=== PATIENT | male | born 1990 | race Caucasian/White ===

== ENCOUNTER 2023-12-12 12:54 | Emergency (ER) | payer SELFPAY ==
--- NOTE | ~2023-12-12 | XR_ITS ---
EXAMINATION: XR RIBS, RIGHT CLINICAL INFORMATION: Pain. History of rib fracture. COMPARISON: None available. TECHNIQUE: 3 views of the right ribs were obtained. FINDINGS: Lungs are clear. No pneumothorax. Bony structures intact. Ribs intact. XR/XR ribs RT min 3V w CXR1V IMPRESSION: Unremarkable exam. Lungs are clear. No consolidation, pneumothorax, or pleural effusion. The cardiomediastinal silhouette and pulmonary vasculature are normal. Osseous structures are unremarkable. Ribs are intact. No fractures are identified. IMPRESSION: Unremarkable examination.
[2023-12-12 12:57] VITALS: BP 98/75; PULSE 96; RESP 19; TEMP 36.8; O2SAT 98; BMI 19.5
--- NOTE | 2023-12-12 13:00 | ED.GENADULT ---
HPI - General Adult General Chief complaint: General Medical Stated complaint: r sided back and rib area pain Time Seen by Provider: 12/12/23 14:06 Source: patient and family Mode of arrival: ambulatory Limitations: no limitations History of Present Illness ED Provider: Marylu BONILLA narrative: Patient is a 33-year-old male presenting to the emergency department with complaint of right lower posterior rib pain as well as cough and shortness of breath. Reports history of rib fracture in similar area in 2019. Pain is worse with movement and palpation. States son recently tested positive for COVID. He denies fevers, body aches, chills. Denies any abdominal pain, nausea, vomiting, diarrhea. Denies any chest pain or palpitations. Has been using Tylenol and ibuprofen at home with little relief. MD complaint: Cough, rib pain Onset (ago): day(s) Quality: aching Pain Consistency: colicky Relieving factors: rest Exacerbating factors: movement Associated symptoms: cough and shortness of breath Treatments prior to arrival: NSAID and other (Tylenol) Related Data Previous Rx's ?Medication ?Instructions ?Recorded benzonatate 100 mg capsule 100 mg PO TID PRN cough #14 caps 12/12/23 lidocaine 5 % topical patch 1 patch topical DAILY #15 ea 12/12/23 Allergies Allergy/AdvReac Type Severity Reaction Status Date / Time No Known Allergies Allergy Verified 12/12/23 13:02 Review of Systems Review of Systems: As per HPI. Yes all other systems are reviewed and are negative Constitutional: Constitutional: Reports as per HPI [facility] Social History Social History Advance Directives: No Do you have a plan to hurt others: No Plan Physical Exam ED Vital Signs: Vital Signs - 24 hr 12/12/23 12:57 12/12/23 13:52 Temperature 98.3 F 98.2 F Pulse Rate 96 68 Respiratory Rate 19 Blood Pressure 98/75 95/66 Pulse Oximetry 98 98 Oxygen Delivery Method Room Air Room Air BMI result Body Mass Index 19.5 Vital signs have been reviewed and appear to be correct. Blood pressure normal. Heart rate normal. Respiratory rate normal. Temperature normal. Oxygen saturation normal. Const General: cooperative, healthy appearing and no acute distress Orientation/consciousness: oriented to person, oriented to place, oriented to time and patient oriented x3 Limitations: no limitations HENMT Head: Yes normocephalic and Yes atraumatic Ears: external ears normal General nose exam: Normal external nose present Face and sinus: Yes face symmetric Mouth: oropharynx normal and moist mucous membranes Throat: Yes uvula midline Eyes Pupils: Equal, round and reactive pupils present Neck Neck: Yes normal visual inspection and Yes supple Chest Chest palpation & inspection: normal inspection of the chest, no crepitus and tenderness rib right posterior-axillary line involving the 9th rib, involving the 10th rib, involving the 11th rib and involving the 12th rib Resp Effort & Inspection: normal respiratory effort, able to speak in complete sentences, no retractions, not tachypneic and no use of accessory muscles Auscultation: clear to auscultation bilaterally, no crackles, no rhonchi and no wheezes Cardio Rate: regular rate Rhythm: regular rhythm Heart sounds: S1 normal heart sound present and S2 normal heart sound present GI Palpation (GI): Soft to palpation and nontender Auscultation: normoactive bowel sounds General: Yes no CVA tenderness Back/Spine/Pelvis Back: no CVA tenderness Skin General skin exam: elasticity normal and turgor normal Neuro General: oriented to person, oriented to place, oriented to time, patient oriented x3, moves all extremities, no focal motor deficits and CN's II-XI intact bilaterally Cranial nerves: Yes Equal, round and reactive pupils present Cognition (Neuro): normal cognition Extrem General: Yes full ROM, Yes no pedal edema and Yes no calf tenderness Psych Mental Status: mental status grossly normal Affect: normal affect Thought process: Normal thought process present Course Course Course Narrative: This is an RME: Additional HPI, ROS, PE not included below will be deferred to primary provider. RME assessment and note performed by: Alesha Singer PA-C This is a [id number], withno known medical problems, presenting to the ER with complaints of right sided rib pain x 1 week. Hx of right rib fx in the past. No injury or trauma. Son was sick with COVID. No fevers. Endorsing slight cough and SOB. Plan: CXR, Viral swabs Medical Decision Making Medical Decision Making MDM Narrative: Patient is a 33-year-old male presenting to the emergency department with complaint of right lower posterior rib pain as well as cough and shortness of breath. On exam patient is awake, A+Ox3, VS WNL, afebrile, normal neurological exam without focal deficits, physical exam findings as above. Given reported symptoms and physical exam findings, initial differential includes costochondritis, rib contusion, rib fracture, viral illness, COVID, flu, RSV. Viral serology positive for COVID-19. Patient is outside treatment window for Paxlovid. X-ray notable for no evidence of rib fracture or pneumonia. My interpretation is in agreement with the radiologist's interpretation. Physical exam findings consistent with costochondritis. Advised patient to begin alternating Tylenol and ibuprofen every 3 hours. Will send prescription for lidocaine patches and benzonatate for cough. Instructed patient follow-up with primary care provider. Return precautions discussed at bedside. Patient verbalized understanding of and agreement with plan. Differential Diagnosis Differential Diagnoses: The differential diagnosis associated with the presentation includes As per [facility]. Admission/Observation Consideration of admission/observation: Escalation of care including admission/observation considered Patient would have been admitted to the hospital had their work up had any findings where hospital admission was appropriate and their clinical presentation warranted hospital admission. Lab Data [facility] Lab Attestation statement: I reviewed the patient's lab results. As per MDM. Labs: Lab Results 12/12/23 Range/Units 13:24 Influenza Type A (PCR) NEGATIVE (Negative) Influenza Type B (PCR) NEGATIVE (Negative) RSV RNA Qual (PCR) NEGATIVE (Negative) SARS-CoV-2 RNA (RT-PCR) POSITIVE A (Negative) Independent Interpretation I performed an independent interpretation of an: Plain X-Ray Interpretation: No evidence of rib fracture or pneumonia on chest x-ray Radiology Impression Discussion of test interpretation with radiology: I have reviewed the radiologist's reading. Radiologist Impression: XR/XR ribs RT min 3V w CXR1V IMPRESSION: Unremarkable exam. Lungs are clear. No consolidation, pneumothorax, or pleural effusion. The cardiomediastinal silhouette and pulmonary vasculature are normal. Osseous structures are unremarkable. Ribs are intact. No fractures are identified. IMPRESSION: Unremarkable examination. External Record Review External record reviewed: Inpatient record, Office record and Outpatient record Prescription Management I considered prescription management with: Pain Medication Discharge Plan Discharge Clinical Impression: COVID-19, Costochondritis Patient Disposition: Home, Self-Care Instructions: Costochondritis (ED), COVID-19 (Coronavirus Disease 2019) (ED) Additional Instructions: You were evaluated in the emergency department today for rib pain, cough and shortness of breath. Your viral testing was positive for COVID-19. Your x-ray did not show evidence of any new rib fractures or pneumonia. We recommend that you use 650 mg of Tylenol or 600 mg of ibuprofen every 6 hours as needed for pain. If necessary, you can alternate these medications every 3 hours. For example, at 9:00 a.m. take Tylenol, then at noon take ibuprofen then at 3:00 p.m. take Tylenol, etc.. You are being prescribed topical lidocaine patches which you can wear for up to 12 hours in a 24 hour period. Do not apply heat directly over the patches. You are being prescribed benzonatate for cough which you can use as needed every 8 hours. It is important that you keep this medication out of the reach of children. Please follow-up with your primary care provider. Return to the emergency department if you develop worsening pain, fever not controlled with Tylenol or ibuprofen, chest pain, difficulty breathing, dizziness or lightheadedness or any other concerning symptoms. Prescriptions: New lidocaine 5 % adhesive patch,medicated 1 patch topical DAILY Qty: 15 0RF Rx Instructions: leave on most painful area for up to 12 hrs benzonatate 100 mg capsule 100 mg PO TID PRN (Reason: cough) Qty: 14 0RF Stand Alone Forms: Work/School Release Print Language: Portuguese
[2023-12-12 13:52] VITALS: BP 95/66; PULSE 68; TEMP 36.8; O2SAT 98
[2023-12-12 14:16] LABS: Influenza A PCR NEGATIVE (Negative); Influenza B PCR NEGATIVE (Negative); Resp Syncy Virus RNA Qual PCR NEGATIVE (Negative); SARS COV2 PCR INHOUSE POSITIVE (Negative)
[2023-12-12 15:58] VITALS: BP 95/66; PULSE 68; RESP 16; TEMP 36.8; O2SAT 98
== END 2023-12-12 15:59 | disposition home or self-care (01) ==
PROVIDERS: Physician Assistant Medical; Emergency Provider Emergency Medicine; PCP Internal Medicine
DX: U07.1 COVID-19 (principal); M94.0 Chondrocostal junction syndrome [Tietze]
CPT/HCPCS: 0241U; 71101; 99283

== ENCOUNTER 2024-04-19 04:29 | Emergency (ER) | payer SELFPAY ==
--- NOTE | ~2024-04-19 | XR_ITS ---
EXAMINATION: XR CHEST CLINICAL INFORMATION: Chest pain shortness of breath COMPARISON: Right rib radiograph from 12/12/2023 TECHNIQUE: Frontal view of the chest was obtained. FINDINGS: No focal consolidation. No pneumothorax. Trachea is midline. Cardiac mediastinal silhouette is not enlarged. No large pleural effusion. Osseous structures are intact. Soft tissues are unremarkable. XR/XR chest 1V IMPRESSION: No acute cardiopulmonary process. Electronically signed by: Tom Javier MD 04/19/2024 08:33 AM EDT
[2024-04-19 04:39] VITALS: BP 101/54; BP 104/79; PULSE 72; RESP 15; TEMP 36.8; O2SAT 100; O2SAT 96; BMI 20.6
--- NOTE | 2024-04-19 04:53 | MHC.EDTECH ---
Patient BIBA,changed into hospital attire,vitals taken,placed pt on the night monitor,call pugh in reach
--- NOTE | 2024-04-19 04:57 | PC.NURSE ---
Assumed care of pt, BIB EMS after drinking alcohol pt reports he was feeling SOB and overall awful. Pt reports this has never happened before. Pt reports SOB has resolved and that he is feeling a little nauseous and drunk but no longer feeling sob. Reports he only drinks occasionally on the weekends and just recently started drinking again after not drinking in about 2 years. Pt reports no history of alcohol withdrawal, current every day tobacco and marijuana smoker. Pt denies SI/HI, Pt on tele monitor, spo2 100% on room air, plan of care ongoing.
[2024-04-19 06:52] LABS: Hematocrit 43.2 % (42.0-52.0); Hemoglobin 14.5 g/dl (14.0-18.0); Mean Corpuscular HGB Conc 33.6 g/dl (31.0-36.0); Mean Corpuscular Volume 83.6 fL (80.0-98.0); Mean Platelet Volume 9.5 fL (9.4-12.4); Platelet Count 242 X10*3/uL (160-400); Red Blood Count 5.17 X10*6/uL (4.60-5.80); Red Cell Distribution Width 13.1 % (11.0-16.0); White Blood Count 7.5 X10*3/uL (4.8-10.8)
[2024-04-19 07:00] LABS: Anion Gap 15 (12-20); Blood Urea Nitrogen 14 mg/dL (9-16); Calcium 9.1 mg/dL (8.4-10.2); Carbon Dioxide 22 mmol/L (22-29); Chloride 110 mmol/L (96-108); Creatinine Clr Calc Pharmacy 108.3; Estimated Glomerular Filt Rate > 60; Ethanol 98 mg/dL; Glucose Random 93 mg/dL (60-115); Potassium 3.7 mmol/L (3.3-5.1); Sodium 143 mmol/L (135-145)
--- NOTE | 2024-04-19 07:48 | ED_ITS ---
HPI - General Adult General Chief complaint: Dyspnea Stated complaint: dif breathing after ETOH, currently 100% on rm.air Time Seen by Provider: 04/19/24 06:49 Source: patient and RN notes reviewed Mode of arrival: EMS Limitations: no limitations History of Present Illness ED Provider: Alesha Singer PA-C HPI narrative: This is a 33-year-old male who presents emergency department with complaints of alcohol use. Patient reports that he ?drank too much?, states that he drank Danae, a couple of beers in a blue drank which has girlfriend had given him. He states that he feels as though he was intoxicated and drank too much alcohol. No other substance use. He states that he has some chest discomfort and per EMS report, he could not breathe. He states that he does not have the symptoms. He denies any chest pain or shortness for breath. No headache, dizziness, blurred vision, abdominal pain, nausea, vomiting or diarrhea. He denies any other complaints or concerns at this time. MD complaint: Alcohol use Relieving factors: none Exacerbating factors: none Associated symptoms: denies other symptoms Treatments prior to arrival: none Related Data Previous Rx's ?Medication ?Instructions ?Recorded benzonatate 100 mg capsule 100 mg PO TID PRN cough #14 caps 12/12/23 lidocaine 5 % topical patch 1 patch topical DAILY #15 ea 12/12/23 Allergies Allergy/AdvReac Type Severity Reaction Status Date / Time No Known Allergies Allergy Verified 04/19/24 04:43 Review of Systems 2 Review of Systems: Yes all other systems are reviewed and are negative Constitutional: Constitutional: Reports as per [facility] Past Medical History Attestation statement: The following information was validated with the patient. Social History Social History Alcohol intake: current Alcohol intake frequency: a few times a month Alcohol type: beer and hard liquor Smoked in Last 30 Days: Yes Use of substances other than those prescribed or required for medical reasons: Yes Substance Use Type: Marijuana Substance Use Frequency: Chronic Longstanding Advance Directives: No Do you have a plan to hurt others: No Plan Physical Exam ED Vital Signs: Vital Signs - 24 hr 04/19/24 04:39 04/19/24 08:43 04/19/24 12:12 Temperature 98.2 F Pulse Rate 72 66 68 Respiratory Rate 15 16 17 Blood Pressure 104/79 90/56 L 101/61 Pulse Oximetry 96 97 96 Oxygen Delivery Method Room Air Room Air Room Air BMI result Body Mass Index 20.6 Const General: cooperative, comfortable and no acute distress Orientation/consciousness: patient oriented x3 Limitations: no limitations [facility] Head: Yes normal to inspection, Yes normocephalic, Yes atraumatic, No Garza's sign, No contusion, No occipital foramen tenderness, No palpable skull fracture, No raccoon eyes and No scalp tenderness Ears: hearing grossly normal bilaterally General nose exam: Normal external nose present Face and sinus: Yes normal facial exam Mouth: Normal oral and palatal mucosa present, oropharynx normal and moist mucous membranes Throat: Yes posterior oropharynx normal Eyes General: appearance normal, both eyes and all related structures Eyelids: Yes eyelids normal Conjunctivae: conjunctivae normal Sclerae: sclerae normal Pupils: Equal, round and reactive pupils present EOM: EOMs intact bilaterally Neck Neck: Yes normal visual inspection, Yes full ROM and Yes no lymphadenopathy Lymphatic: no lymphadenopathy noted Chest Chest palpation & inspection: normal inspection of the chest Resp Effort & Inspection: normal respiratory effort and able to speak in complete sentences Auscultation: clear to auscultation bilaterally, no crackles, no rales, no rhonchi and no wheezes Cardio Rate: regular rate Rhythm: regular rhythm Heart sounds: S1 normal heart sound present and S2 normal heart sound present GI Other: Abdomen is soft, nontender, nondistended Inspection: Yes normal to inspection Skin General skin exam: no rashes or lesions noted Trauma: no lacerations or abrasions Wounds: no wounds Neuro General: patient oriented x3 and moves all extremities Cranial nerves: Yes CN's II-XII intact bilaterally and Yes Equal, round and reactive pupils present Cognition (Neuro): normal cognition Gait exam (Neuro): Normal gait present Motor exam (neuro): 5/5 motor strength present throughout and Pronator motor function not present Extrem General: Yes normal to inspection Right upper extremity: normal to inspection Left upper extremity: normal to inspection Right lower extremity: normal to inspection Left lower extremity: normal to inspection Course Reevaluation(s) Reevaluation #1: Chest x-ray unremarkable. Chemistry with no electrolyte derangement. Viral swabs negative. Time: 09:55 Reevaluation #2: Patient re-evaluated, feeling much better after receiving Zofran. Will p.o. trial Time: 10:00 Reevaluation #3: Attempted to give fluids and crackers, however patient reports that he is feeling nauseous again. Advised that we can medicate him with something else however patient would like to wait. We will continue to closely monitor. Time: 10:35 Additional Reevaluation(s): Patient feeling much better, he is drinking fluids at bedside. Strict return precautions. He understands and agrees with plan. Patient stable for discharge. Medications Administered Discontinued Medications Generic Name Dose Route Start Last Admin Trade Name Shawn PRN Reason Stop Dose Admin Acetaminophen 650 mg 04/19/24 12:52 04/19/24 12:56 Acetaminophen 325 Mg Tablet PO 04/19/24 12:53 650 mg ONCE ONE Administration Ondansetron HCl 4 mg 04/19/24 08:08 04/19/24 08:20 Ondansetron Odt 4 Mg Tab.Rapdis TRANSLINGU 04/19/24 08:09 4 mg ONCE ONE Administration Medical Decision Making Medical Decision Making [facility] Narrative: This is a 33-year-old male who presents emergency department via EMS as he ?drank too much?. On arrival, vital signs within normal limits. He is speaking in full sentences under no acute distress. He does report some nausea. Abdomen is soft and nontender. He reports no chest pain or shortness of breath. Labs were ordered, no leukocytosis, stable H&H, chemistry within normal limits. He is neurologically intact. Head is normocephalic atraumatic. Chest x-ray unremarkable. EKG nonischemic. Continue to monitor pending re-evaluation with nausea, and possible p.o. challenge. Differential Diagnosis Differential Diagnoses: The differential diagnosis associated with the presentation includes Alcohol use disorder, acute nausea, vomiting, polysubstance abuse, gastroenteritis, gastritis Admission/Observation Consideration of admission/observation: Escalation of care including admission/observation considered Lab Data [facility] Lab Attestation statement: I reviewed the patient's lab results. No leukocytosis, stable H&H, chemistry within normal limits, viral swabs negative 04/19/24 06:44 04/19/24 06:44 Labs: Lab Results 04/19/24 04/19/24 Range/Units 06:44 08:34 WBC 7.5 (4.8-10.8) X10*3/uL RBC 5.17 (4.60-5.80) X10*6/uL Hgb 14.5 (14.0-18.0) g/dl Hct 43.2 (42.0-52.0) % MCV 83.6 (80.0-98.0) fL MCH 28.0 (27.0-33.0) pg MCHC 33.6 (31.0-36.0) g/dl RDW 13.1 (11.0-16.0) % Plt Count 242 (160-400) X10*3/uL MPV 9.5 (9.4-12.4) fL Absolute Nucleated RBC 0.000 (0.0-0.012) X10*3/uL Nucleated RBC % (auto) 0.0 (0.0-0.2) /100WBC Sodium 143 (135-145) mmol/L Potassium 3.7 (3.3-5.1) mmol/L Chloride 110 H (96-108) mmol/L Carbon Dioxide 22 (22-29) mmol/L Anion Gap 15 (12-20) BUN 14 (9-16) mg/dL Creatinine 0.81 (0.5-1.4) mg/dL Estim Creat Clear Calc 108.3 Estimated GFR > 60 Random Glucose 93 (60-115) mg/dL Calcium 9.1 (8.4-10.2) mg/dL Troponin I High Sens < 2.7 (<3.5-35.0) ng/L Ethyl Alcohol 98 mg/dL Influenza Type A (PCR) NEGATIVE (Negative) Influenza Type B (PCR) NEGATIVE (Negative) RSV RNA Qual (PCR) NEGATIVE (Negative) SARS-CoV-2 RNA (RT-PCR) NEGATIVE (Negative) Independent Interpretation I performed an independent interpretation of an: EKG Interpretation: EKG normal sinus rhythm at a ventricular rate of 70 beats per minute, no ST elevation or depression. Radiology Impression Discussion of test interpretation with radiology: I have reviewed the radiologist's reading. Radiologist Impression: XR/XR chest 1V IMPRESSION: No acute cardiopulmonary process. Electronically signed by: Tom Javier MD 04/19/2024 08:33 AM EDT Dictated By: Tom Javier MD Independent Historian Clinical information obtained from an independent historian. History obtained from or confirmed by: EMS Social Determinants Patient?s care significantly limited by Social Determinants of Health including: Alcoholism and drug addiction in family Discharge Plan Discharge Clinical Impression: Alcohol use Patient Disposition: Still a Patient Instructions: Abuse of Alcohol (ED), At-Risk Alcohol Use (ED) Additional Instructions: You were seen in the emergency department today. Your chest x-ray was normal, your blood work was reassuring. Please continue bland diet over the next several days. Advance diet as tolerated. If any new or worsening symptoms occur including but not limited to chest pain or shortness of breath please seek emergent care. Prescriptions: No Action lidocaine 5 % adhesive patch,medicated 1 patch topical DAILY Qty: 15 0RF Rx Instructions: leave on most painful area for up to 12 hrs benzonatate 100 mg capsule 100 mg PO TID PRN (Reason: cough) Qty: 14 0RF Print Language: Mongolian
--- NOTE | 2024-04-19 07:48 | ECG_ITS ---
Test Reason : CP Blood Pressure : / mmHG Vent. Rate : 070 BPM Atrial Rate : 070 BPM P-R Int : 150 ms QRS Dur : 082 ms QT Int : 394 ms P-R-T Axes : 054 068 059 degrees QTc Int : 425 ms Normal sinus rhythm Normal ECG No previous ECGs available Referred By: Alesha Singer Electronically Signed By:MARGARITA PRESTON
[2024-04-19 08:18] LABS: Troponin-I High Sensitivity < 2.7 ng/L (<3.5-35.0)
[2024-04-19] MEDS: Ondansetron ODT 4 MG TAB.RAPDIS TRANSLINGU (08:20)
[2024-04-19 08:43] VITALS: BP 90/56; PULSE 66; RESP 16; O2SAT 97
[2024-04-19 09:16] LABS: Influenza A PCR NEGATIVE (Negative); Influenza B PCR NEGATIVE (Negative); Resp Syncy Virus RNA Qual PCR NEGATIVE (Negative); SARS COV2 PCR INHOUSE NEGATIVE (Negative)
[2024-04-19 12:12] VITALS: BP 101/61; PULSE 68; RESP 17; O2SAT 96
[2024-04-19] MEDS: Acetaminophen 325 MG TABLET 650 MG PO (12:56)
[2024-04-19 13:35] VITALS: BP 101/61; PULSE 68; RESP 18; TEMP 36.7; O2SAT 96
== END 2024-04-19 13:35 | disposition still patient (30) ==
PROVIDERS: Physician Assistant Medical; Emergency Provider Emergency Medicine
DX: R06.00 Dyspnea, unspecified (principal); F10.10 Alcohol abuse, uncomplicated; Y90.4 Blood alcohol level of 80-99 mg/100 ml; R11.0 Nausea; R07.89 Other chest pain; Z03.818 Encounter for observation for suspected exposure to other biological agents ruled out; Z79.899 Other long term (current) drug therapy; Z51.81 Encounter for therapeutic drug level monitoring
CPT/HCPCS: 0241U; 36415; 71045; 80048; 80307; 84484; 85027; 93005; 99285

== ENCOUNTER → 2024-04-19 07:48 | Outpatient (BNV) | payer SELFPAY | PROVIDERS: Emergency Provider Emergency Medicine; Visit Provider Internal Medicine | DX: R07.9 Chest pain, unspecified (principal) | CPT/HCPCS: 93010 ==

== ENCOUNTER 2025-01-07 11:10 | Emergency (ER) | payer OTHER, SELFPAY ==
--- NOTE | ~2025-01-07 | XR_ITS ---
EXAMINATION: XR CERVICAL SPINE CLINICAL INFORMATION: pain COMPARISON: None available. TECHNIQUE: AP, lateral and atlantoodontoid views. FINDINGS: Craniocervical junction is intact. No acute cortical disruption or malalignment. No lytic or blastic lesions. Upper airway is patent. No metallic or radiopaque foreign body. XR/XR cervical spine 3V IMPRESSION: No acute fracture or listhesis. Electronically signed by: Mark Melton MD 01/07/2025 12:35 PM EDT
--- NOTE | ~2025-01-07 | XR_ITS ---
EXAMINATION: XR HAND, LEFT CLINICAL INFORMATION: pain COMPARISON: None available. TECHNIQUE: PA, lateral, and oblique views of the left hand. FINDINGS: Old traumatic deformity with volar angulation, distal diaphysis fifth metacarpal. No acute cortical disruption or malalignment in the phalanges of the digits. Carpal bones are intact. Metallic plate distal epiphysis metaphysis and diaphysis of the radius. XR/XR hand LT min 3V IMPRESSION: No acute fracture or dislocation. Old traumatic deformity, fifth metacarpal. Electronically signed by: Mark Melton MD 01/07/2025 12:37 PM EDT
--- NOTE | ~2025-01-07 | XR_ITS ---
EXAMINATION: XR WRIST, RIGHT CLINICAL INFORMATION: pain COMPARISON: None available. TECHNIQUE: PA, lateral, and oblique views of the right wrist. Scaphoid projection. FINDINGS: The carpal bones are intact. Normal alignment. No lytic or blastic lesions. Distal radius and ulna are intact. 2 mm calcific opacity in the soft tissues of the ulnar aspect of the right hand, nonspecific. XR/XR wrist RT min 3V IMPRESSION: No acute fracture or dislocation. Electronically signed by: Mark Melton MD 01/07/2025 12:40 PM EDT
--- NOTE | ~2025-01-07 | XR_ITS ---
EXAMINATION: XR WRIST, LEFT CLINICAL INFORMATION: pain COMPARISON: None available. TECHNIQUE: PA, lateral, and oblique views of the left wrist. Scaphoid projection. FINDINGS: The carpal bones are intact. There is normal alignment. There is a intact metallic plate in the volar aspect of the distal epiphysis metaphysis and diaphysis of the radius. No lytic or blastic lesions. No loosening. XR/XR wrist LT min 3V IMPRESSION: No acute fracture or dislocation. Electronically signed by: Mark Melton MD 01/07/2025 12:34 PM EDT
--- NOTE | ~2025-01-07 | XR_ITS ---
EXAMINATION: XR HAND, RIGHT CLINICAL INFORMATION: pain COMPARISON: None available. TECHNIQUE: PA, lateral, and oblique views of the right hand. FINDINGS: The metacarpal bones are intact. The phalanges are intact with normal alignment. 2 mm calcific opacity soft tissues just ulnar aspect of the fifth metacarpal.. No subcutaneous emphysema. The carpal bones are intact. Distal radius and ulna are intact. XR/XR hand RT min 3V IMPRESSION: No acute fracture or dislocation. Nonspecific 2 mm radiopaque/calcification soft tissues ulnar aspect of the right hand. Electronically signed by: Mark Melton MD 01/07/2025 12:38 PM EDT
--- NOTE | ~2025-01-07 | XR_ITS ---
EXAMINATION: XR RIBS, RIGHT CLINICAL INFORMATION: pain COMPARISON: Chest radiograph 04/19/2024. Right RIBS 12/12/2023. TECHNIQUE: PA chest, and 3 views of the right ribs were obtained. FINDINGS: Lungs are clear. No consolidation, pneumothorax, or pleural effusion. The cardiomediastinal silhouette and pulmonary vasculature are normal. Osseous structures are unremarkable. Ribs are intact. No fractures are identified. XR/XR ribs RT min 3V w CXR1V IMPRESSION: No acute findings in the thorax. The ribs appear intact. Electronically signed by: Maximino Salvador MD 01/07/2025 12:39 PM EDT
[2025-01-07 11:21] VITALS: BP 105/70; PULSE 59; RESP 16; TEMP 36.2; O2SAT 100; BMI 20.3
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
[2025-01-07 14:41] VITALS: BP 105/70; PULSE 59; RESP 16; TEMP 36.2; O2SAT 100
== END 2025-01-07 14:23 | disposition home or self-care (01) ==
PROVIDERS: Emergency Provider Emergency Medicine
DX: S29.8XXA Other specified injuries of thorax, initial encounter (principal); S60.221A Contusion of right hand, initial encounter; S16.1XXA Strain of muscle, fascia and tendon at neck level, initial encounter; R07.81 Pleurodynia; M79.632 Pain in left forearm; Y04.8XXA Assault by other bodily force, initial encounter; Y93.9 Activity, unspecified; Y92.9 Unspecified place or not applicable; Y99.9 Unspecified external cause status
CPT/HCPCS: 71101; 72040; 73110; 73130; 99282; 99283

== ENCOUNTER → 2025-01-07 11:25 | Outpatient (BNV) | payer SELFPAY | PROVIDERS: Visit Provider Radiology Diagnostic Radiology | DX: R07.89 Other chest pain (principal); M54.2 Cervicalgia; M25.532 Pain in left wrist; M79.642 Pain in left hand; M25.531 Pain in right wrist; M79.641 Pain in right hand | CPT/HCPCS: 71101; 72040; 73110; 73130 ==

== ENCOUNTER 2025-06-16 00:47 | Emergency (ER) | payer MEDICAID, SELFPAY ==
--- NOTE | 2025-06-16 00:53 | ECG_ITS ---
Test Reason : CHEST PAIN Blood Pressure : */* mmHG Vent. Rate : 59 BPM Atrial Rate : 59 BPM P-R Int : 156 ms QRS Dur : 84 ms QT Int : 408 ms P-R-T Axes : 63 78 66 degrees QTcB Int : 403 ms Sinus bradycardia Otherwise normal ECG When compared with ECG of 19-Apr-2024 07:46, No significant change was found Referred By: Generic ED Physician Electronically Signed By: Charles Kearns
[2025-06-16 01:02] VITALS: BP 113/79; PULSE 68; RESP 16; TEMP 36.6; O2SAT 98; BMI 20.6
[2025-06-16 01:28] LABS: MANUAL DIFF FLAG NO
[2025-06-16 01:30] LABS: Hematocrit 40.8 % (42.0-52.0); Hemoglobin 14.0 g/dl (14.0-18.0); Imm Gran Abs Auto 0.03 X10*3/uL (0.00-0.03); Imm Gran Pct Auto 0.3 % (0.0-0.4); Lymphocytes Absolute Auto 1.9 X10*3/uL (1.2-4.9); Mean Corpuscular HGB Conc 34.3 g/dl (31.0-36.0); Mean Corpuscular Hemoglobin 28.6 pg (27.0-33.0); Mean Corpuscular Volume 83.3 fL (80.0-98.0); NRBC Abs Auto 0.000 X10*3/uL (0.0-0.012); NRBC Pct Auto 0.0 /100WBC (0.0-0.2); Platelet Count 210 X10*3/uL (160-400); Red Blood Count 4.90 X10*6/uL (4.60-5.80); White Blood Count 9.0 X10*3/uL (4.8-10.8)
[2025-06-16 01:43] LABS: Alanine Aminotransferase 13 U/L (0-40); Albumin Level 4.2 g/dL (3.5-5.0); Alkaline Phosphatase 72 U/L (39-117); Anion Gap 13 (12-20); Aspartate Amino Transferase 20 U/L (5-37); Blood Urea Nitrogen 17 mg/dL (9-16); Calcium 9.0 mg/dL (8.4-10.2); Carbon Dioxide 25 mmol/L (22-29); Chloride 108 mmol/L (96-108); Creatinine Clr Calc Pharmacy 119.2; Estimated Glomerular Filt Rate > 60; Magnesium 1.9 mg/dL (1.6-2.6); Potassium 3.5 mmol/L (3.3-5.1); Sodium 142 mmol/L (135-145); Total Protein 7.1 g/dL (6.5-8.0)
[2025-06-16 02:06] LABS: Resp Syncy Virus RNA Qual PCR NEGATIVE (Negative); SARS COV2 PCR INHOUSE NEGATIVE (Negative)
[2025-06-16 04:25] VITALS: BP 102/64; PULSE 54; RESP 16; TEMP 36.6; O2SAT 96
--- NOTE | 2025-06-16 05:53 | ED_ITS ---
HPI - Headache General Chief Complaint: Headache Stated Complaint: CP/headache Time Seen by Provider: 06/16/25 05:36 Source: patient Mode of arrival: ambulatory Limitations: no limitations History of Present Illness ED Provider: Dr. Martin Mcnally HPI Narrative: 34-year-old male with a history of asthma who presents emergency department for evaluation of 3 days of intermittent headache. Patient states that the headache started 3 days prior, came on gradually. The pain is located behind his eyes, forehead radiates up his head into the back of his neck. Patient states that the pain is a pressure-like pain which is 9/10 at its worse in his currently 9/10 at the time my evaluation. He states he has a occasional right-sided facial numbness. He has a associated nausea with no vomiting. He denied fever but states he had occasional chills. He states that when the headache is bad he gets chest pain and shortness of breath. Patient states he took Tylenol and this did help intermittently with a his headache. Patient also has photophobia associated with the headache. Related Data Previous Rx's ?Medication ?Instructions ?Recorded benzonatate 100 mg capsule 100 mg PO TID PRN cough #14 caps 12/12/23 lidocaine 5 % topical patch 1 patch topical DAILY #15 ea 12/12/23 cyclobenzaprine 10 mg tablet 10 mg PO TID PRN muscle s pasm #20 01/07/25 tabs ibuprofen 600 mg tablet 600 mg PO Q6H PRN pain #30 t abs 01/07/25 lidocaine 5 % topical patch 1 patch topical DAILY #30 ea 01/07/25 ctairvg-qjfyhfmcuapvh-fgpcmuce 250 2 tab PO Q6H PRN He adaches #20 tabs 06/16/25 mg-250 mg-65 mg tablet (Excedrin Migraine) diphenhydramine HCl 25 mg capsule 50 mg (2 x 25 mg) PO Q6H PRN 06/16/25 (Benadryl) headache #20 caps metoclopramide HCl 10 mg tablet 10 mg PO Q6H PRN Heada leodan, nausea 06/16/25 (Reglan) and vomiting #20 tabs Allergies Allergy/AdvReac Type Severity Reaction Status Date / Time No Known Allergies Allergy Verified 06/16/25 01:06 Review of Systems 2 Review of Systems: Yes all other systems are reviewed and are negative [facility] Past Medical History [facility] Narrative: Social history: He is here in the emergency department with a his mother. He does smoke cigarettes. He occasionally drinks alcohol but he has had no alcohol to drink in 1 month. He does smoke marijuana but denies injection drug use or other drug use. Medical History (Updated 06/17/25 @ 00:00 by Fam Mojica) No pertinent past medical history Social History Social History Unable to assess alcohol history related to: Unknown Alcohol intake: current Alcohol intake frequency: holidays/special occasions only Alcohol type: beer and hard liquor Patient Tobacco Use Status: Tobacco use Unknown Use of substances other than those prescribed or required for medical reasons: No Substance Use Type: Marijuana Any prior treatment program specific to substance use: No Advance Directives: No Advance Directives Information Provided: Yes Do you have a plan to hurt others: No Plan Physical Exam 2 Vital Signs: Vital Signs: Last Vital Signs Temp 0 F L 06/16/25 10:21 Pulse 108 H 06/16/25 10:21 Resp 21 H 06/16/25 10:21 BP 110/66 06/16/25 10:21 Pulse Ox 94 06/16/25 10:21 O2 Del Method Room Air 06/16/25 04:25 BMI result Body Mass Index 20.6 Vital signs were normal Exam: General: Awake, alert in no distress Head: Normocephalic, atraumatic, no temporal tenderness EENT: PERRL, sclera and conjunctiva are normal, mouth with no erythema or exudates Neck: Supple, no adenopathy Lung: breath sounds symmetric, no wheezing, no rales and no rhonchi Chest: symmetric movement, nontender Heart: regular rate and rhythm, normal S1, S2 no murmurs or rubs Abdomen: soft, non-tender, nondistended, normal bowel sounds Back: no vertebral tenderness, no CVAT Extremities: no deformities, moves all extremities symmetrically, no edema Neuro: General: ?Awake, alert, oriented, normal speech Cranial nerves: ?Cranial nerves 2-12 ?intact Strength: ?Moves all extremities symmetrically, strength 5/5 Cerebellar: ?Good incbix-fw-ckim-to-finger, good rapid finger movement, normal heel to de luna Psych: Pleasant, cooperative Medications Administered Discontinued Medications Generic Name Dose Route Start Last Admin Trade Name Freq PRN Reason Stop Dose Admin Diphenhydramine HCl 50 mg 06/16/25 05:51 06/16/25 06:27 Diphenhydramine Hcl 50 Mg/Ml Vial IVPUSH 06/16/25 05:52 50 mg ONCE STA Administration Sodium Chloride 1,000 mls @ 999 mls/hr 06/16/25 05:51 06/16/25 06:26 Ns IV 06/16/25 06:51 999 mls/hr .Q1H1M STA Administration Ketorolac Tromethamine 15 mg 06/16/25 05:51 06/16/25 06:27 Ketorolac Tromethamine 15 Mg/Ml Vial IVPUSH 06/16/25 05:52 15 mg ONCE STA Administration Metoclopramide HCl 10 mg 06/16/25 05:51 06/16/25 06:27 Metoclopramide Hcl 10 Mg/2 Ml Vial IVPUSH 06/16/25 05:52 10 mg ONCE STA Administration Morphine Sulfate 4 mg 06/16/25 08:52 06/16/25 09:27 Morphine Sulfate 4 Mg/Ml Cartridge IVPUSH 06/16/25 08:53 4 mg ONCE STA Administration Protocol Medical Decision Making Medical Decision Making MDM Narrative: 34-year-old male with a history of asthma who presents emergency department for evaluation of 3 days of intermittent headache. Patient states that the headache started 3 days prior, came on gradually. The pain is located behind his eyes and forehead radiates up his head into the back of his neck. Patient states that the pain is a pressure-like pain which is 9/10 at its worse and is currently 9/10 at the time my evaluation. He also complains of occasional occasional right-sided facial numbness. He has associated nausea with no vomiting. He denied fever but states he had occasional chills. He states that when the headache is bad he gets chest pain and shortness of breath. Patient states he took Tylenol and this did help intermittently with a his headache. Patient also has photophobia associated with the headache. Differential diagnosis: ?Includes but is not limited to intracranial hemorrhage, stroke, migraine headache, nonspecific headache, anemia, electrolyte abnormalities Course: 05:58 My independent interpretation patient's laboratory evaluation as follows: CBC was normal. CMP was normal. COVID-19, influenza and RSV tests were negative The patient's physical examination was unremarkable. Presentation is consistent with a an acute migraine syndrome and I did discuss this with the patient. Patient was treated with Reglan 10 mg IV, Benadryl 50 mg IV and Toradol 30 mg IV. Patient was also ordered to get normal saline IV x1 L. 08:53 The patient states that he got initial improvement with the above treatment but that has headache is now returning. Therefore I ordered morphine 4 mg IV. 10:21 . Patient's headache improved with the above treatment, his pain is resolved completely . Therefore the patient discharged home with prescriptions for Reglan, Benadryl and Excedrin migraine every 6 hours as needed for headaches. The patient will be referred to our Neurology group for re-evaluation of migraine headaches. Patient was given printed and verbal instructions and discharged home in the care of his mother. Differential Diagnosis Differential Diagnoses: The differential diagnosis associated with the presentation includes (See above) Admission/Observation Consideration of admission/observation: Escalation of care including admission/observation considered (Yes) Lab Data 06/16/25 01:19 06/16/25 01:19 Labs: Lab Results 06/16/25 Range/Units 01:19 WBC 9.0 (4.8-10.8) X10*3/uL RBC 4.90 (4.60-5.80) X10*6/uL Hgb 14.0 (14.0-18.0) g/dl Hct 40.8 L (42.0-52.0) % MCV 83.3 (80.0-98.0) fL MCH 28.6 (27.0-33.0) pg MCHC 34.3 (31.0-36.0) g/dl RDW 13.3 (11.0-16.0) % Plt Count 210 (160-400) X10*3/uL MPV 10.5 (9.4-12.4) fL Immature Gran % (Auto) 0.3 (0.0-0.4) % Neut % (Auto) 65.1 (45-73) % Lymph % (Auto) 21.5 (20-40) % [place] % (Auto) 10.7 (2-11) % Eos % (Auto) 1.8 (0-4) % Baso % (Auto) 0.6 (0-2) % Lymph # (Auto) 1.9 (1.2-4.9) X10*3/uL [place] # (Auto) 1.0 (0.1-1.2) X10*3/uL Eos # (Auto) 0.2 (0.0-0.4) X10*3/uL Baso # (Auto) 0.1 (0.0-0.2) X10*3/uL Abs Immat Gran (auto) 0.03 (0.00-0.03) X10*3/uL Absolute Neuts (auto) 5.9 (2.0-8.3) x10*3/uL Absolute Nucleated RBC 0.000 (0.0-0.012) X10*3/uL Nucleated RBC % (auto) 0.0 (0.0-0.2) /100WBC Sodium 142 (135-145) mmol/L Potassium 3.5 (3.3-5.1) mmol/L Chloride 108 (96-108) mmol/L Carbon Dioxide 25 (22-29) mmol/L Anion Gap 13 (12-20) BUN 17 H (9-16) mg/dL Creatinine 0.73 (0.5-1.4) mg/dL Estim Creat Clear Calc 119.2 Estimated GFR > 60 Random Glucose 105 (60-115) mg/dL Calcium 9.0 (8.4-10.2) mg/dL Magnesium 1.9 (1.6-2.6) mg/dL Total Bilirubin 0.4 (0.0-1.0) mg/dL AST 20 (5-37) U/L ALT 13 (0-40) U/L Alkaline Phosphatase 72 (39-117) U/L Total Protein 7.1 (6.5-8.0) g/dL Albumin 4.2 (3.5-5.0) g/dL Influenza Type A (PCR) NEGATIVE (Negative) Influenza Type B (PCR) NEGATIVE (Negative) RSV RNA Qual (PCR) NEGATIVE (Negative) SARS-CoV-2 RNA (RT-PCR) NEGATIVE (Negative) Critical Care Time Critical Care Time Critical Care Time: Yes Total Critical Care Time: 35 Attestation: Critical Care: The patient was critically ill with a high probability of imminent or life threatening deterioration. I spent greater than 30 minutes of discontinuous time evaluating the patient,delivering critical care at the bedside, discussing and evaluating pertinent data with consultants. Critical care time does not include time spent performing separately billable procedures or teaching. Total time spent performing critical care was 35 minutes. Discharge Plan Discharge Clinical Impression: Headache, migraine, Nausea Patient Disposition: Home, Self-Care Instructions: Migraine Headache (ED) Additional Instructions: Your symptoms are consistent with a migraine. I want you to take the following 3 medications together every 6 hours as needed for headache, nausea or vomiting. Reglan (metoclopramide) in 10 mg, 1 pill Benadry (diphenhydramine) 25 mg, 2 pills Excedrin migraine (acetaminophen, aspirin, caffeine), 2 pills. After you take these medications, lie down in a dark quiet room and try to fall asleep. ?These medications will make you sleepy, do not drive or work after taking these medications. Follow-up with your doctor in 2 days. I am also referring you to our [facility] group for re-evaluation of your headaches. Please return to the emergency department if your symptoms get worse or if you develop any symptoms that are concerning to you. Prescriptions: New bdnxkia-kbjdurostxieg-phihkzep [Excedrin Migraine] 250-250-65 mg tablet 2 tab PO Q6H PRN (Reason: Headaches) Qty: 20 0RF diphenhydramine HCl [Benadryl] 25 mg capsule 50 mg PO Q6H PRN (Reason: headache) Qty: 20 0RF metoclopramide HCl [Reglan] 10 mg tablet 10 mg PO Q6H PRN (Reason: Headache, nausea and vomiting) Qty: 20 0RF No Action lidocaine 5 % adhesive patch,medicated 1 patch topical DAILY Qty: 15 0RF Rx Instructions: leave on most painful area for up to 12 hrs benzonatate 100 mg capsule 100 mg PO TID PRN (Reason: cough) Qty: 14 0RF cyclobenzaprine 10 mg tablet 10 mg PO TID PRN (Reason: muscle spasm) Qty: 20 0RF lidocaine 5 % adhesive patch,medicated 1 patch topical DAILY Qty: 30 0RF Rx Instructions: leave on most painful area for up to 12 hrs ibuprofen 600 mg tablet 600 mg PO Q6H PRN (Reason: pain) Qty: 30 0RF Referrals: [facility] [Provider Group] Referral Note: Migraine headaches Clinical Impression: Headache, migraine Interventions: ED Discharge Assessment Last Done: 06/16/25 10:21 Discharge Date/Time: 06/16/25 10:21 Print Language: French
[2025-06-16 08:00] VITALS: BP 110/66; PULSE 108; RESP 21; O2SAT 94
[2025-06-16 10:21] VITALS: BP 110/66; PULSE 108; RESP 21; TEMP -17.7; TEMP 0; O2SAT 94
== END 2025-06-16 10:21 | disposition home or self-care (01) ==
PROVIDERS: Emergency Provider Emergency Medicine Emergency Medical Services
DX: G43.909 Migraine, unspecified, not intractable, without status migrainosus (principal); R07.89 Other chest pain; R11.2 Nausea with vomiting, unspecified; R00.1 Bradycardia, unspecified; Z03.818 Encounter for observation for suspected exposure to other biological agents ruled out; Z79.899 Other long term (current) drug therapy
CPT/HCPCS: 80053; 83735; 85025; 87637; 93005; 96374; 96375; 99284; 99285; J1200; J1885; J2270; J2765

== ENCOUNTER → 2025-06-16 00:53 | Outpatient (BNV) | payer MEDICAID, SELFPAY | PROVIDERS: Emergency Provider Emergency Medicine Emergency Medical Services; Visit Provider Internal Medicine Cardiovascular Disease | DX: R00.1 Bradycardia, unspecified (principal) | CPT/HCPCS: 93010 ==

== ENCOUNTER 2025-06-23 15:08 | Outpatient (REF) | payer MEDICAID, SELFPAY ==
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
--- OUTSIDE RECORDS SUMMARY | 2025-06-23 15:10 | XMS_ITS | Encounter Summary ---
Author Organization [employer] Address [address] [facility] [address] [place] [address] Care Team Providers Care Manager Licensing Name Role Phone AmandaPao NP Primary Care Provider [phone] Encounter Details Date Type Department Care Team (Latest Contact Info) Description 06/23/2025 Travel Social History Tobacco Use Types Packs/Day Years Used Date Smoking Tobacco: Every Day Cigarettes Passive Smoke Exposure: Current Smokeless Tobacco: Current Depression Answer Date Recorded Patient Health Questionnaire-9 [...] AM EDT documented as of this encounter Plan of Treatment Upcoming Encounters Date Type Department Care Team (Late st Contact Info) Description 07/23/2025 11:00 AM EST Office Visit [facility] [address] [place] [address] Pao Patel NP [address] [place] [phone] documented as of this encounter Visit Diagnoses Not on filedocumented in this encounter Additional Health Concerns Assessment Noted Time PHQ-9 Depression Total Score: 9 06/23/20 25 1:08 PM EST documented as of this encounter Care Teams Manager Licensing Relationship Specialty Start Date End Date Pao Patel NP [address] [place] [phone] PCP - General Nurse Practitioner 06/23/25 documented as of this encounter
[2025-06-23 17:32] LABS: CT PCR Urine NOT DETECTED (Not Detect.); NG PCR Urine NOT DETECTED (Not Detect.)
== END 2025-06-23 15:09 | disposition home or self-care (01) ==
LOC: HO.HHCLNP 15:08
DX: Z20.2 Contact with and (suspected) exposure to infections with a predominantly sexual mode of transmission (principal)
CPT/HCPCS: 87491; 87591

== ENCOUNTER 2025-06-27 03:04 | Emergency (ER) | payer MEDICAID, SELFPAY ==
[2025-06-27] VITALS (10 sets, daily range): BP systolic 84–101; BP diastolic 44–75; PULSE 58–82; RESP 12–20; TEMP 36.4; O2SAT 95–100; BMI 20.5
--- NOTE | ~2025-06-27 | CT_ITS ---
CLINICAL HISTORY: headache CT head without contrast Comparison: None provided Findings: No intra-axial mass, midline shift, hydrocephalus, or acute hemorrhage. No significant atrophy-like change or white matter disease. There is a mucous retention cyst within the right maxillary sinus. There are no air-fluid levels. The orbits are within normal limits. 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 No acute fracture. IMPRESSION: 1. No acute intracranial findings. This document has been electronically signed by: Mable Pearl MD on 06/27/2025 12:16:26
--- NOTE | ~2025-06-27 | XR_ITS ---
CLINICAL HISTORY: chest pain 1 view chest x-ray Comparison: 01/07/2025 Findings: Portions of the exam are obscured by overlying material. The lungs are clear. Heart size is normal. No acute fracture. IMPRESSION: 1. No acute findings. This document has been electronically signed by: Godfrey Jacobsen MD on 06/27/2025 04:38:30
[2025-06-27] MEDS: Lactated Ringers 1,000 ML 999 ML IV ×4 (03:21→10:42)
[2025-06-27 03:23] LABS: MANUAL DIFF FLAG NO
[2025-06-27 03:24] LABS: Hematocrit 40.8 % (42.0-52.0); Hemoglobin 13.9 g/dl (14.0-18.0); Imm Gran Abs Auto 0.02 X10*3/uL (0.00-0.03); Imm Gran Pct Auto 0.2 % (0.0-0.4); Lymphocytes Absolute Auto 3.2 X10*3/uL (1.2-4.9); Mean Corpuscular HGB Conc 34.1 g/dl (31.0-36.0); Mean Corpuscular Hemoglobin 28.1 pg (27.0-33.0); Mean Corpuscular Volume 82.4 fL (80.0-98.0); NRBC Abs Auto 0.000 X10*3/uL (0.0-0.012); NRBC Pct Auto 0.0 /100WBC (0.0-0.2); Platelet Count 242 X10*3/uL (160-400); Red Blood Count 4.95 X10*6/uL (4.60-5.80); White Blood Count 9.1 X10*3/uL (4.8-10.8)
--- NOTE | 2025-06-27 03:24 | ED.AMS ---
HPI - Altered Mental Status General Chief Complaint: Dyspnea Stated Complaint: found unresponsive Time Seen by Provider: 06/27/25 03:12 Source: patient, EMS, RN notes reviewed and old records reviewed Mode of arrival: EMS Limitations: altered mental status History of Present Illness ED Provider: Dr. Margarita Myers HPI narrative: 34-year-old male with a history of asthma presenting via EMS with reported altered mental status, unresponsive episode found down at his home. Mom reports that she found the patient unresponsive and called 911. He has been reportedly feeling unwell for several days. He has been out tonight drinking with friends. Also admits to marijuana consumption. He was home for about an hour when he was found unresponsive and did not respond to sternal rub when they arrived to his home. Patient reported feeling globally weak. Could not lift himself up off the ground. Unclear if he had a fall or had any head injuries. Patient denies pain or difficulty breathing. Reports ?just using alcohol tonight?. Patient was recently hospitalized for a migraine headache. Also had an albuterol inhaler prescribed by his primary care doctor. Related Data Previous Rx's ?Medication ?Instructions ?Recorded benzonatate 100 mg capsule 100 mg PO TID PRN cough #14 caps 12/12/23 lidocaine 5 % topical patch 1 patch topical DAILY #15 ea 12/12/23 cyclobenzaprine 10 mg tablet 10 mg PO TID PRN muscle spasm #20 01/07/25 tabs ibuprofen 600 mg tablet 600 mg PO Q6H PRN pain #30 tabs 01/07/25 lidocaine 5 % topical patch 1 patch topical DAILY #30 ea 01/07/25 [id number]-dalbptxhplhlj-qovsquyr 250 2 tab PO Q6H PRN Headaches #20 tabs 06/16/25 mg-250 mg-65 mg tablet (Excedrin Migraine) diphenhydramine HCl 25 mg capsule 50 mg (2 x 25 mg) PO Q6H PRN 06/16/25 (Benadryl) headache #20 caps metoclopramide HCl 10 mg tablet 10 mg PO Q6H PRN Headache, nausea 06/16/25 (Reglan) and vomiting #20 tabs Allergies Allergy/AdvReac Type Severity Reaction Status Date / Time No Known Allergies Allergy Verified 06/27/25 03:10 Review of Systems Review of Systems: Yes Unobtainable due to mental status PMFSH Past Medical History Medical History No pertinent past medical history Social History Social History Alcohol intake: current Alcohol intake frequency: holidays/special occasions only Alcohol type: beer and hard liquor Patient Tobacco Use Status: Tobacco use Unknown Smoked in Last 30 Days: Yes Use of substances other than those prescribed or required for medical reasons: Yes Substance Use Type: Marijuana Advance Directives: No Advance Directives Information Provided: Yes Physical Exam ED Exam Exam: GENERAL: Appears intoxicated, GCS 13, eyes open to voice, slurred speech, no acute distress. SKIN: Normal skin color for ethnicity, warm, dry, no rashes noted. HEENT: Normocephalic, atraumatic, no stridor, posterior oropharynx nonerythematous, dentition intact, EOMI, pupils are pinpoint bilaterally, reactive to light. NECK: Soft, supple, no step-offs, no deformities, no lymphadenopathy. CHEST: Heart regular rhythm, no murmurs, symmetric chest rise and fall. PULMONARY: Clear to auscultation bilaterally, diminished at the bases, no labored breathing, no wheezes/rhales/rhonchi. ABDOMINAL: Soft, nondistended, positive bowel sounds in all quadrants. : Deferred. MUSCULOSKELETAL: Normal tone, full range of motion, no deformities, no peripheral edema. NEURO: GCS 13, eyes open to voice, slightly slurred speech, CN II through XII intact, equal strength and sensation bilateral upper and lower extremities, no focal neurologic deficits. PSYCHIATRIC: Flat affect, poor eye contact. Vital Signs: Vital Signs - 24 hr 06/27/25 03:07 06/27/25 03:43 06/27/25 04:42 Temperature 97.6 F Pulse Rate 63 68 65 Pulse Rate [Left Apical] Respiratory Rate 12 13 15 Blood Pressure 99/75 101/67 95/56 L Pulse Oximetry 100 98 96 Oxygen Delivery Method Room Air Room Air Room Air 06/27/25 06:08 06/27/25 07:28 06/27/25 07:42 Temperature Pulse Rate 72 82 59 Pulse Rate [Left Apical] Respiratory Rate 14 18 12 Blood Pressure 89/51 L 98/44 L 84/49 L Pulse Oximetry 95 97 97 Oxygen Delivery Method Room Air Nasal Cannula Room Air 06/27/25 08:03 06/27/25 09:42 06/27/25 10:00 Temperature Pulse Rate 58 76 Pulse Rate [Left Apical] 61 Respiratory Rate 12 20 Blood Pressure 92/51 L 97/59 L Pulse Oximetry 95 97 Oxygen Delivery Method Room Air Room Air BMI result Body Mass Index 20.5 Course Reevaluation(s) Reevaluation #1: 12:24 PM 06/27/2025 (Wilfredo Mcduffie MD): The patient is a 34-year-old male who was signed out to me at change of shift. He the patient had arrived earlier this morning apparently unresponsive after using some kind of substances. His ethanol level is elevated. Other tox screens are unremarkable. He apparently responded to naloxone. He may have taken gabapentin. The patient had some low blood pressures and was given IV fluids. He also complained of a headache which he said was similar to a headache for which he presented to the emergency room about 10 days ago. He says that he has had similar headaches but he has never really been evaluated for them. His mother is concerned that he has never had a CAT scan of his head because of these headaches. His mother also reported that before he came to the hospital he made some potentially suicidal statements. The patient has been given IV fluids. He was given metoclopramide, ketorolac, and diphenhydramine for his headaches. He has a negative head CT. He was seen by the care team who feels that he is at low risk and does not require hospitalization. The care team clinician felt that the patient has several children in his clearly future oriented. This was possibly a case of the patient being ?drunkicidal. ? The patient and his mother both feel comfortable with the patient being discharged. They feel that there was no safety issue. The patient has a PCP at the [facility] and is advised to follow up with his PCP. He has also been referred to outpatient mental health care through [facility]. Time: 12:27 Medications Administered Discontinued Medications Generic Name Dose Route Start Last Admin Trade Name Freq PRN Reason Stop Dose Admin Diphenhydramine HCl 25 mg 06/27/25 10:34 06/27/25 10:43 Diphenhydramine Hcl 50 Mg/Ml Vial IVPUSH 06/27/25 10:35 25 mg ONCE ONE Administration Lactated Ringer's 1,000 mls @ 999 mls/hr 06/27/25 03:12 06/27/25 04:38 Lr IV 06/27/25 04:12 Infused .Q1H1M ONE Infusion Lactated Ringer's 1,000 mls @ 999 mls/hr 06/27/25 04:40 06/27/25 05:45 Lr IV 06/27/25 05:40 Infused .Q1H1M ONE Infusion Lactated Ringer's 1,000 mls @ 999 mls/hr 06/27/25 06:13 06/27/25 07:31 Lr IV 06/27/25 07:13 Infused .Q1H1M ONE Infusion Lactated Ringer's 1,000 mls @ 999 mls/hr 06/27/25 10:45 06/27/25 11:43 Lr IV 06/27/25 11:45 Infused .Q1H1M CLAUDIO Infusion Ketorolac Tromethamine 15 mg 06/27/25 03:48 06/27/25 03:54 Ketorolac Tromethamine 15 Mg/Ml Vial IVPUSH 06/27/25 03:49 15 mg ONCE ONE Administration Ketorolac Tromethamine 15 mg 06/27/25 10:34 06/27/25 10:43 Ketorolac Tromethamine 15 Mg/Ml Vial IVPUSH 06/27/25 10:35 15 mg ONCE ONE Administration Metoclopramide HCl 10 mg 06/27/25 10:34 06/27/25 10:43 Metoclopramide Hcl 10 Mg/2 Ml Vial IVPUSH 06/27/25 10:35 10 mg ONCE ONE Administration Naloxone HCl 0.4 mg 06/27/25 03:18 06/27/25 03:21 Naloxone Hcl 0.4 Mg/Ml Vial IVPUSH 06/27/25 03:19 0.4 mg ONCE ONE Administration Ondansetron HCl 4 mg 06/27/25 03:48 06/27/25 03:54 Ondansetron Hcl 4 Mg/2 Ml Vial IVPUSH 06/27/25 03:49 4 mg ONCE ONE Administration Medical Decision Making Medical Decision Making MDM Narrative: Patient presents today with a chief complaint of altered mental status. Differential diagnosis for AMS is incredibly broad and includes infection, intracranial process such as hemorrhage, stroke or mass, electrolyte abnormality, hypercarbia, hypoxia, toxic encephalopathy, among many others. Broad-based workup was initiated to further evaluate the etiology of patient's symptoms based on the above exam and history. 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 He adamantly denies using any other illicit substances besides alcohol and marijuana. Admits that he has had issues in the past with episodes like this when out with this group of friends he was with a tonight. Plan for UDS. 3:11 AM 06/27/2025 (Dr. Margarita Myers, D.O.) patient having episode of apnea with oxygen level dropping into the 70s. Given a dose of IV Narcan with good effect. Respiratory rate now in the 20s, oxygen level 100% on room air. 7:12 AM 06/27/2025 (Dr. Margarita Myers, D.O.) patient's mother is now at bedside. Reports that tonight she was called to his home by the patient who was crying in discomfort. States when she arrived at the home, he was intoxicated and shouting that he ?wanted to kill himself by blowing his brains out?. States that he has a history of suicidality and has been hospitalized previously at [facility] for this issue. Last hospitalization was in 2016 or around that time. Admits that he has severe depression and has been dealing with a lot of anxiety lately. He also reported to her that he took something for a headache. Has previous prescriptions for gabapentin and was recently seen in this emergency department for headaches and was discharged on Reglan, Benadryl and Excedrin headache. Clinically, patient appears to be more of a gabapentin intoxication/overdose rather than anticholinergic medications like Benadryl. His heart rate is normal, his blood pressure is rather low, most recent reading of 80/50. His pupils were initially pinpoint upon arrival to the ER. He responded briefly to Narcan which is unexpected. His UDS is negative for any opiates including fentanyl. It is possible that he may be using a drug that is not on the drug screen, specifically med etomidate or ?dex? which has been in the local drugs circulation lately. That being said, would not expect him to respond to such a small dose of Narcan at 0.4 mg however, his substance picture is mixed including alcohol intoxication, potential for other sedative hypnotics such as gabapentin and/or cyclobenzaprine. His EKG is not ischemic and has normal intervals. QTC 425, QRS of 90. With gabapentin overdose or even cyclobenzaprine for that matter, would expect there to be some widening of the QR to suggest sodium channel involvement. He has received 2 L of IV fluid. Would continue to infuse crystalloid if he remains hypotensive. That being said, the patient is arousable to voice, answers questions appropriately but quickly falls back asleep. We will sign out to oncoming team pending sober re-evaluation, improvement in blood pressures and care team evaluation for his suicidality. Differential Diagnosis Differential Diagnoses: The differential diagnosis associated with the presentation includes (as above) Admission/Observation Consideration of admission/observation: Escalation of care including admission/observation considered Consult Healthcare Provider Management of the patient was discussed with: Behavioral Health Provider Lab Data MDM Lab Attestation statement: I reviewed the patient's lab results. 06/27/25 03:18 06/27/25 03:18 Labs: Lab Results 06/27/25 06/27/25 06/27/25 Range/Units 03:18 03:23 06:08 WBC 9.1 (4.8-10.8) X10*3/uL RBC 4.95 (4.60-5.80) X10*6/uL Hgb 13.9 L (14.0-18.0) g/dl Hct 40.8 L (42.0-52.0) % MCV 82.4 (80.0-98.0) fL MCH 28.1 (27.0-33.0) pg MCHC 34.1 (31.0-36.0) g/dl RDW 13.1 (11.0-16.0) % Plt Count 242 (160-400) X10*3/uL MPV 9.6 (9.4-12.4) fL Immature Gran % (Auto) 0.2 (0.0-0.4) % Neut % (Auto) 50.8 (45-73) % Lymph % (Auto) 35.4 (20-40) % Kerr % (Auto) 10.7 (2-11) % Eos % (Auto) 2.2 (0-4) % Baso % (Auto) 0.7 (0-2) % Lymph # (Auto) 3.2 (1.2-4.9) X10*3/uL Kerr # (Auto) 1.0 (0.1-1.2) X10*3/uL Eos # (Auto) 0.2 (0.0-0.4) X10*3/uL Baso # (Auto) 0.1 (0.0-0.2) X10*3/uL Abs Immat Gran (auto) 0.02 (0.00-0.03) X10*3/uL Absolute Neuts (auto) 4.6 (2.0-8.3) x10*3/uL Absolute Nucleated RBC 0.000 (0.0-0.012) X10*3/uL Nucleated RBC % (auto) 0.0 (0.0-0.2) /100WBC VBG pH 7.52 H (7.32-7.43) VBG pCO2 24 mmHg VBG pO2 160 mmHg VBG HCO3 19 L (22-26) mmol/L VBG O2 Saturation 99.0 % VBG Base Excess -1.0 mmol/L Sodium 141 (135-145) mmol/L Potassium 3.2 L (3.3-5.1) mmol/L Chloride 108 (96-108) mmol/L Carbon Dioxide 18 L (22-29) mmol/L Anion Gap 18 (12-20) BUN 20 H (9-16) mg/dL Creatinine 0.91 (0.5-1.4) mg/dL Estim Creat Clear Calc 95.2 Estimated GFR > 60 Random Glucose 81 (60-115) mg/dL Calcium 9.0 (8.4-10.2) mg/dL Total Bilirubin 0.3 (0.0-1.0) mg/dL AST 28 (5-37) U/L ALT 22 (0-40) U/L Alkaline Phosphatase 73 (39-117) U/L Total Protein 7.4 (6.5-8.0) g/dL Albumin 4.3 (3.5-5.0) g/dL Salicylates (15-30) mg/dL Urine Opiates Screen Not Detected (Not Detect) Ur Buprenorphine Scrn Not Detected (Not Detect) ng/mL Ur Oxycodone Screen Not Detected (Not Detect) ng/mL Urine Methadone Screen Not Detected (Not Detect) ng/mL Urine Fentanyl Screen Not Detected (Not Detect) Acetaminophen (<30) mcg/mL Ur Barbiturates Screen Not Detected (Not Detect) Ur Phencyclidine Scrn Not Detected (Not Detect) Ur Amphetamines Screen Not Detected (Not Detect) U Benzodiazepines Scrn Not Detected (Not Detect) Urine Cocaine Screen Not Detected (Not Detect) U Marijuana (THC) Screen POSITIVE H (Not Detect) Ethyl Alcohol 169 mg/dL Influenza Type A (PCR) NEGATIVE (Negative) Influenza Type B (PCR) NEGATIVE (Negative) RSV RNA Qual (PCR) NEGATIVE (Negative) SARS-CoV-2 RNA (RT-PCR) NEGATIVE (Negative) 06/27/25 Range/Units 08:02 WBC (4.8-10.8) X10*3/uL RBC (4.60-5.80) X10*6/uL Hgb (14.0-18.0) g/dl Hct (42.0-52.0) % MCV (80.0-98.0) fL MCH (27.0-33.0) pg MCHC (31.0-36.0) g/dl RDW (11.0-16.0) % Plt Count (160-400) X10*3/uL MPV (9.4-12.4) fL Immature Gran % (Auto) (0.0-0.4) % Neut % (Auto) (45-73) % Lymph % (Auto) (20-40) % Kerr % (Auto) (2-11) % Eos % (Auto) (0-4) % Baso % (Auto) (0-2) % Lymph # (Auto) (1.2-4.9) X10*3/uL Kerr # (Auto) (0.1-1.2) X10*3/uL Eos # (Auto) (0.0-0.4) X10*3/uL Baso # (Auto) (0.0-0.2) X10*3/uL Abs Immat Gran (auto) (0.00-0.03) X10*3/uL Absolute Neuts (auto) (2.0-8.3) x10*3/uL Absolute Nucleated RBC (0.0-0.012) X10*3/uL Nucleated RBC % (auto) (0.0-0.2) /100WBC VBG pH (7.32-7.43) VBG pCO2 mmHg VBG pO2 mmHg VBG HCO3 (22-26) mmol/L VBG O2 Saturation % VBG Base Excess mmol/L Sodium (135-145) mmol/L Potassium (3.3-5.1) mmol/L Chloride (96-108) mmol/L Carbon Dioxide (22-29) mmol/L Anion Gap (12-20) BUN (9-16) mg/dL Creatinine (0.5-1.4) mg/dL Estim Creat Clear Calc Estimated GFR Random Glucose (60-115) mg/dL Calcium (8.4-10.2) mg/dL Total Bilirubin (0.0-1.0) mg/dL AST (5-37) U/L ALT (0-40) U/L Alkaline Phosphatase (39-117) U/L Total Protein (6.5-8.0) g/dL Albumin (3.5-5.0) g/dL Salicylates < 5.0 L (15-30) mg/dL Urine Opiates Screen (Not Detect) Ur Buprenorphine Scrn (Not Detect) ng/mL Ur Oxycodone Screen (Not Detect) ng/mL Urine Methadone Screen (Not Detect) ng/mL Urine Fentanyl Screen (Not Detect) Acetaminophen < 3 (<30) mcg/mL Ur Barbiturates Screen (Not Detect) Ur Phencyclidine Scrn (Not Detect) Ur Amphetamines Screen (Not Detect) U Benzodiazepines Scrn (Not Detect) Urine Cocaine Screen (Not Detect) U Marijuana (THC) Screen (Not Detect) Ethyl Alcohol mg/dL Influenza Type A (PCR) (Negative) Influenza Type B (PCR) (Negative) RSV RNA Qual (PCR) (Negative) SARS-CoV-2 RNA (RT-PCR) (Negative) Independent Interpretation I performed an independent interpretation of an: EKG (As above) and Plain X-Ray Interpretation: My independent interpretation of the chest x-ray reveals no consolidations, pulmonary edema, pleural effusion, pneumothorax, obvious bony abnormalities. Radiology Impression Discussion of test interpretation with radiology: I have reviewed the radiologist's reading. Independent Historian Clinical information obtained from an independent historian. History obtained from or confirmed by: Parent and EMS External Record Review External record reviewed: Inpatient record Chronic Conditions Patient?s care impacted by: Other (asthma) Social Determinants Patient?s care significantly limited by Social Determinants of Health including: Other Social Determinant of Health Critical Care Time Critical Care Time Critical Care Time: Yes Total Critical Care Time: 45 Attestation: CRITICAL CARE TIME: 45 minutes of critical care time was spent in direct patient care at the bedside or in the immediate area with this patient. Critical care was necessary to treat or prevent imminent or life-threatening deterioration of the following conditions hypotension, acute encephalopathy, dehydration due to toxic ingestion versus alcohol ingestion versus potential suicide attempt.. This patient is high risk for decompensation and/or . This time was spent assessing and managing the patient, interpreting labs and imaging, coordinating care with other medical providers, gathering history from either the patient, their representatives, EMS or chart review, and discussing management with behavioral health team. Discharge Plan Discharge Clinical Impression: Alcohol intoxication, Depression, Headache Patient Disposition: Home, Self-Care Additional Instructions: Please rest and take it easy today. Please plan on following up with your regular doctor's office to discuss your headaches. Also plan on contacting the [facility] ([facility]) for possible outpatient counseling. Be careful with alcohol in the future and also be careful with the any other substances. You were seen in our Emergency Department today for treatment of a behavioral health issue. It is important after your visit that you follow up with either your behavioral health provider or a primary care doctor within 7 days.? The National Suicide and Crisis Lifeline can be reached 7 days a week 24 hours a day.? Call 988 to speak with someone.? Return for any worsening symptoms or concerns such as thoughts of self harm or harm to others. Please call 911 if you feel your mental health is worsening.? Return to the emergency room if you feel significantly worse. Prescriptions: No Action lidocaine 5 % adhesive patch,medicated 1 patch topical DAILY Qty: 15 0RF Rx Instructions: leave on most painful area for up to 12 hrs benzonatate 100 mg capsule 100 mg PO TID PRN (Reason: cough) Qty: 14 0RF cyclobenzaprine 10 mg tablet 10 mg PO TID PRN (Reason: muscle spasm) Qty: 20 0RF lidocaine 5 % adhesive patch,medicated 1 patch topical DAILY Qty: 30 0RF Rx Instructions: leave on most painful area for up to 12 hrs ibuprofen 600 mg tablet 600 mg PO Q6H PRN (Reason: pain) Qty: 30 0RF [id number] [Excedrin Migraine] 250-250-65 mg tablet 2 tab PO Q6H PRN (Reason: Headaches) Qty: 20 0RF diphenhydramine HCl [Benadryl] 25 mg capsule 50 mg PO Q6H PRN (Reason: headache) Qty: 20 0RF metoclopramide HCl [Reglan] 10 mg tablet 10 mg PO Q6H PRN (Reason: Headache, nausea and vomiting) Qty: 20 0RF Referrals: [facility] [Provider Group] [facility] [Outside] Print Language: Welsh
[2025-06-27 03:26] LABS: Venous Blood Gas Refer to POC result
[2025-06-27 03:28] LABS: VBG HCO3 19 mmol/L (22-26); VBG O2 % Saturation 99.0 %
[2025-06-27 03:37] LABS: Alanine Aminotransferase 22 U/L (0-40); Albumin Level 4.3 g/dL (3.5-5.0); Alkaline Phosphatase 73 U/L (39-117); Anion Gap 18 (12-20); Aspartate Amino Transferase 28 U/L (5-37); Blood Urea Nitrogen 20 mg/dL (9-16); Calcium 9.0 mg/dL (8.4-10.2); Carbon Dioxide 18 mmol/L (22-29); Chloride 108 mmol/L (96-108); Creatinine Clr Calc Pharmacy 95.2; Estimated Glomerular Filt Rate > 60; Potassium 3.2 mmol/L (3.3-5.1); Sodium 141 mmol/L (135-145); Total Protein 7.4 g/dL (6.5-8.0)
--- NOTE | 2025-06-27 03:48 | ECG_ITS ---
Test Reason : AMS Blood Pressure : */* mmHG Vent. Rate : 64 BPM Atrial Rate : 64 BPM P-R Int : 166 ms QRS Dur : 90 ms QT Int : 412 ms P-R-T Axes : 62 64 55 degrees QTcB Int : 425 ms Normal sinus rhythm with sinus arrhythmia Normal ECG When compared with ECG of 16-Jun-2025 00:57, No significant change was found Referred By: Margarita Myers Electronically Signed By: JANEL SIGALA MD
[2025-06-27 04:02] LABS: Resp Syncy Virus RNA Qual PCR NEGATIVE (Negative); SARS COV2 PCR INHOUSE NEGATIVE (Negative)
--- NOTE | 2025-06-27 04:05 | PC.NURSE ---
pt responded well to narcan, more awake and alert, RR>12. 95% on RA
[2025-06-27 06:25] LABS: Cannabinoid Screen Urine POSITIVE (Not Detect)
--- NOTE | 2025-06-27 08:00 | PC.NURSE ---
nurse took over patient care at 7am, patient sleeping, wakes to verbal stimulus, alert to person/place, monitoring engineer intact nsr 70s, pt hypotensive on monitor-provider notified, family at bedside, mother notified provider pt does take gabapentin at home and has had previous SI. 1:1 sitter was put at bedside and care team consult was placed. additional labs are being drawn, call pugh within reach, plan of care ongoing.
[2025-06-27 08:46] LABS: Acetaminophen LAB < 3 mcg/mL (<30); Salicylate < 5.0 mg/dL (15-30)
--- NOTE | 2025-06-27 10:08 | PC.NURSE ---
pt complaining of nausea and headache, will notify provider
== END 2025-06-27 13:00 | disposition home or self-care (01) ==
PROVIDERS: Emergency Medicine; Emergency Provider Emergency Medicine
DX: F10.129 Alcohol abuse with intoxication, unspecified (principal); Y90.6 Blood alcohol level of 120-199 mg/100 ml; F41.8 Other specified anxiety disorders; F12.90 Cannabis use, unspecified, uncomplicated; R51.9 Headache, unspecified; Z79.899 Other long term (current) drug therapy; Z03.818 Encounter for observation for suspected exposure to other biological agents ruled out
CPT/HCPCS: 36415; 70450; 71045; 80053; 80143; 80179; 80307; 82803; 85025; 87637; 93005; 96361; 96374; 96375; 96376; 99285; J1200; J1885; J2312; J2405; J2765; J7120; S9485

== ENCOUNTER → 2025-06-27 03:48 | Outpatient (BNV) | payer MEDICAID, SELFPAY | PROVIDERS: Emergency Provider Emergency Medicine; Visit Provider Internal Medicine Cardiovascular Disease | DX: R41.82 Altered mental status, unspecified (principal) | CPT/HCPCS: 93010 ==

== ENCOUNTER → 2025-06-27 03:48 | Outpatient (BNV) | payer MEDICAID, SELFPAY | PROVIDERS: Emergency Provider Emergency Medicine; Visit Provider Specialist | DX: R51.9 Headache, unspecified (principal); R07.9 Chest pain, unspecified | CPT/HCPCS: 70450; 71045 ==

== ENCOUNTER 2025-06-29 10:33 | Outpatient (REF) | payer MEDICAID, SELFPAY ==
[2025-06-29 12:45] LABS: Cholesterol 172 mg/dL (<200); HDL Cholesterol 41 mg/dL (>40); Triglycerides 127 mg/dL (<150)
--- OUTSIDE RECORDS SUMMARY | 2025-06-29 14:14 | XMS_ITS | Clinical Summary ---
Author Organization [employer] Address [address] [facility] [address] [place] [address] Care Team Providers Care Short Order Fry Cook Name Role Phone aPo Patel NP Primary Care Provider [phone] Allergies No known active allergies Medications albuterol [...] Description 06/23/2025 12:15 PM EST Office Visit [facility] [address] [place] [phone] Pao Patel NP Healthcare maintenance (Primary Dx); [...] Description 07/23/2025 11:00 AM EST Office Visit [facility] [address] [place], [place] [phone] Pao Patel, ARMEN [address] [place], [place] [phone] Health Maintenance Due Date Last Done Comments HIV Screening 1989 Lipid Panel 1989 06/29/2025 Family Planning (PISQ) 2004 HPV Vaccines (1 [...] Procedure Name Priority Date/Time Associated Diagnosis Comments HEMOGLOBIN A1C Routine 06/29/2025 10:39 AM EST Healthcare maintenance LIPID PANEL, STANDARD Routine 06/29/2025 10:39 AM EST Healthcare maintenance VENOUS BLOOD GAS Routine 06/27/2025 3:23 AM EST ETHANOL Routine 06/27/2025 3:18 AM EST COMPREHENSIVE METABOLIC PANEL Routine 06/27/2025 3:18 AM EST CBC WITH AUTO DIFFERENTIAL Routine 06/27/2025 3:18 AM EST SARS COV2/INFLUENZA A/B AND RSV RNA QL NAAT Routine 06/27/2025 3:18 AM EST CHLAMYDIA/TRICHOMONAS/ NEISSERIA GONORRHOEAE, PCR, URINE Routine 06/23/2025 12:00 AM EST Routine screening for STI (sexually transmitted infection) MAGNESIUM Routine 06/16/2025 1:19 AM EST COMPREHENSIVE METABOLIC PANEL Routine 06/16/2025 1:19 AM EST CBC WITH AUTO DIFFERENTIAL Routine 06/16/2025 1:19 AM EST SARS COV2/INFLUENZA A/B AND RSV RNA QL NAAT Routine 06/16/2025 1:19 AM EST from Last 3 Months Results * Hemoglobin A1c (06/29/2025 10:39 AM EST) Hemoglobin A1c 5.4 <6.0 % [facility] Comment:Hemoglobin A1C Refer ence Range Adults: 4.8 - 6.0 % Non diabetic: < 6.0 % Goal: < 7.0 %Additional Action Suggested: > 8.0 %Note: Hemoglobin A1c results are invalid for patients with abnormal amounts of HbF. Blood transfusions may impact the HbA1c concentration in the patient sample. Estimated Average Glucose 108 mg/dL [facility] Comment:eAG = Estimated ave rage glucose which is %A1C expressed asaverage glucose, using the formula of the M2V-FkfwixhTgdudnv Glucose study (ADAG), Diabetes Care, Vol.31,#8,Jan. 2007 Blood Venous blood specimen / Unknown 06/29/2025 10:39 AM EST 06/29/2025 11:14 AM EST Pao Patel NP LAB BLOOD ORDERABLES Final Resu lt [facility] [address] [place] [address] [phone] * (ABNORMAL) Lipid Panel, Standard (06/29/2025 10:39 AM EST) Triglycerides 127 <150 mg/dL [facility] Comment:Desirable Triglyceri de: less than 150 mg/dLBorderline High Triglyceride 150-199 mg/dLHigh Triglyceride: 200-499 mg/dLVery High Triglyceride: greater than or equal to 5OO mg/dL Cholesterol 172 <200 mg/dL [facility] Comment:Desirable Cholestero l: less than 200 mg/dLBorderline High Cholesterol: 200-239 mg/dLHigh Cholesterol: greater than 239 mg/dL LDL Cholesterol Calculated 106(H) <100 mg/dL [facility] Comment:Desirable LDL: less than 100 mg/dLNear Optimal/Above Optimal LDL: 110- 129 mg/dLBorderline High LDL: 130-159 mg/dLHigh LDL: 160-189 mg/dLVery High LDL: greater than or equal to 190 mg/dL HDL Cholesterol 41 >40 mg/dL [facility] Comment:Desirable HDL: great er than 40 mg/dL Note: This HDL assay may give artificially low results in patients with liver disease. Blood Venous blood specimen / Unknown 06/29/2025 10:39 AM EST 06/29/2025 11:14 AM EST us Pao Patel [employer] LAB BLOOD ORDERABLES Final Resu lt Performing Organization Address [facility] Co de Phone Number [facility] [address] [place] [phone] * (ABNORMAL) VENOUS BLOOD GAS (06/27/2025 3:23 AM EST) VBG pH 7.52(H) 7.32 - 7.43 [facility] Comment:METER #: [id number] additional_comment: Flip Turcios VBG PCO2 24 mmHg [facility] Comment:METER #: [id number] additional_comment: Flip Turcios VBG PO2 160 mmHg [facility] Comment:METER #: [id number] additional_comment: Flip Turcios VBG Base Excess -1.0 mmol/L [facility] Comment:METER #: [id number] additional_comment: Flip Turcios VBG HCO3 19(L) 22 - 26 mmol/L [facility] Comment:METER #: [id number] additional_comment: Flip Turcios O2 Sat, Nimesh 99.0 % [facility] Comment:METER #: [id number] additional_comment: Flip Galan8 06/27/2025 3:23 AM EST 06/27/2025 3:27 AM EST us Generic External Data Provider LAB BLOOD ORDERAB LES Final Result Performing Organization Address [facility] Co de Phone Number [facility] [address] [place] [phone] * Ethanol (06/27/2025 3:18 AM EST) ETHANOL (MG/DL) IN SER/PLAS 169 mg/dL [facility] Comment:Serum/plasma ethanol results are to be used formedical/treatment purposes only. 06/27/2025 3:18 AM EST 06/27/2025 3:21 AM EST Generic External Data Provider LAB BLOOD ORDERAB LES Final Result Performing Organization Address [facility] de Phone Number [facility] [address] [place] [phone] * SARS-CoV-2 RNA, Influenza A/B, and RSV RNA, Ql NAAT (06/27/2025 3:18 AM EST) Only the most recent of2 resultswithin the time period is included. Influenza A PCR NEGATIVE Negative [facility] Influenza B PCR NEGATIVE Negative [facility] Resp Syncy Virus RNA Qual PCR NEGATIVE Negative [facility] SARS COV2 PCR NEGATIVE Negative [facility] Comment:All test results mus t [...] use by authorized laboratories.Testing performed on the [employer] GeneXpert utilizingreal-time RT-PCR.All SARS CoV2 and positive influenza A/B results arereported to [facility]. 06/27/2025 3:18 AM EST 06/27/2025 3:24 AM EST Generic External Data Provider LAB MICROBIOLOGY - GENERAL ORDERABLES Final Result Performing Organization Address [facility]/ZIP Co de Phone Number [facility] [address] [place] [phone] * (ABNORMAL) CBC auto differential (06/27/2025 3:18 AM EST) Only the most recent of2 resultswithin the time period is included. White Blood Count 9.1 4.8 - 10.8 X10*3/uL [facility] Red Blood Count 4.95 4.60 - 5.80 X10*6/uL [facility] Hemoglobin 13.9(L) 14.0 - 18.0 g/dl [facility] Hematocrit 40.8(L) 42.0 - 52.0 % [facility] Mean Corpuscular Volume 82.4 80.0 - 98.0 fL [facility] Mean Corpuscular Hemoglobin 28.1 27.0 - 33.0 pg [facility] Mean Corpuscular HGB Conc 34.1 31.0 - 36.0 g/dl [facility] Red Cell Distribution Width 13.1 11.0 - 16.0 % [facility] Platelet Count 242 160 - 400 X10*3/uL [facility] Mean Platelet Volume 9.6 9.4 - 12.4 fL [facility] Neutrophils Percent Auto 50.8 45 - 73 % [facility] Imm Gran Pct Auto 0.2 0.0 - 0.4 % [facility] Lymphocytes Percent Auto 35.4 20 - 40 % [facility] Monocytes Percent Auto 10.7 2 - 11 % [facility] Eosinophils Percent Auto 2.2 0 - 4 % [facility] Basophils Percent Auto 0.7 0 - 2 % [facility] NRBC Pct Auto 0.0 0.0 - 0.2 /100WBC [facility] Neutrophils Absolute Auto 4.6 2.0 - 8.3 x10*3/uL [facility] Imm Gran Abs Auto 0.02 0.00 - 0.03 X10*3/uL [facility] Lymphocytes Absolute Auto 3.2 1.2 - 4.9 X10*3/uL [facility] Monocytes Absolute Auto 1.0 0.1 - 1.2 X10*3/uL [facility] Eosinophils Absolute Auto 0.2 0.0 - 0.4 X10*3/uL [facility] Basophils Absolute Auto 0.1 0.0 - 0.2 X10*3/uL [facility] NRBC Abs Auto 0.000 0.0 - 0.012 X10*3/uL [facility] 06/27/2025 3:18 AM EST 06/27/2025 3:21 AM EST us Generic External Data Provider LAB BLOOD ORDERAB LES Final Result [facility] [address] [place], [place] [phone] * (ABNORMAL) Comprehensive Metabolic Panel (06/27/2025 3:18 AM EST) Only the most recent of2 resultswithin the time period is included. Sodium 141 135 - 145 mmol/L [facility] Potassium 3.2(L) 3.3 - 5.1 mmol/L [facility] Chloride 108 96 - 108 mmol/L [facility] Carbon Dioxide 18(L) 22 - 29 mmol/L [facility] Anion Gap 18 12 - 20 [facility] Urea Nitrogen (BUN) 20(H) 9 - 16 mg/dL [facility] Creatinine, Serum 0.91 0.5 - 1.4 mg/dL [facility] Creatinine Clr Calc Pharmacy 95.2 [facility] Comment:eGFR (calculated fro m the MDRD study equation) and eCrCl(calculated from the Cockcroft-Gault equation) are based ondifferent parameters and may not yield comparable results.If eCrCl result is absurd, please check patient'sheight/weight. Estimated Glomerular Filt Rate >60 [facility] Comment:Chronic Kidney Disea se: Estimated GFR < 60 mL/min/1.64y2Chtmuk Kidney Disease: Estimated GFR < 15 mL/min/1.73m2 Glucose 81 60 - 115 mg/dL [facility] Calcium 9.0 8.4 - 10.2 mg/dL [facility] Bilirubin, Total 0.3 0.0 - 1.0 mg/dL [facility] Aspartate Amino Transferase 28 5 - 37 U/L [facility] Alanine Aminotransferase 22 0 - 40 U/L [facility] Total Protein 7.4 6.5 - 8.0 g/dL [facility] Albumin Level 4.3 3.5 - 5.0 g/dL [facility] Alkaline Phosphatase 73 39 - 117 U/L [facility] 06/27/2025 3:18 AM EST 06/27/2025 3:21 AM EST us Generic External Data Provider LAB BLOOD ORDERAB LES Final Result [facility] [address] [place] [phone] * Chlamydia/N. Gonorrhoeae, PCR, Urine (06/23/2025 12:00 AM EST) CT PCR, Urine NOT DETECTED Not Detect. [facility] Comment:A not detected test result does not exclude the possibilityof infection because test results can be affected byimproper specimen collection, concurrent antibiotic therapy,or the number of organisms in the specimen which may bebelow the sensitivity of the test. As with many diagnostictests, results from the Xpert CT/NG assay should beinterpreted in conjunction with other laboratory andclinical data available to the clinician.The Xpert CT/NG assay should not be used for the evaluationof suspected sexual abuse or for other medico-legalindications. Additional testing is recommended in anycircumstance when false positive or false negative resultscould lead to adverse medical, social or psychologicalconsequences. NG PCR, Urine NOT DETECTED Not Detect. [facility] Comment:A not detected test result does not exclude the possibilityof infection because test results can be affected byimproper specimen collection, concurrent antibiotic therapy,or the number of organisms in the specimen which may bebelow the sensitivity of the test. As with many diagnostictests, results from the Xpert CT/NG assay should beinterpreted in conjunction with other laboratory andclinical data available to the clinician.The Xpert CT/NG assay should not be used for the evaluationof suspected sexual abuse or for other medico-legalindications. Additional testing is recommended in anycircumstance when false positive or false negative resultscould lead to adverse medical, social or psychologicalconsequences. Urine (Urine, Random) 06/23/2025 06/23/2025 us Pao Patel [employer] LAB URINE ORDERABLES Final Resu lt Performing Organization Address City/[facility]/ZIP Co de Phone Number [facility] [address] [place] [phone] * Magnesium (06/16/2025 1:19 AM EST) Magnesium 1.9 1.6 - 2.6 mg/dL [facility] 06/16/2025 1:19 AM EST 06/16/2025 1:27 AM EST Generic External Data Provider LAB BLOOD ORDERAB LES Final Result Performing Organization Address [facility] Co de Phone Number [facility] [address] [place] [phone] from Last 3 Months Insurance [facility] C3 Care Teams Short Order Fry Cook Relationship Specialty Start Date End Date Pao Patel NP [address] [place], [place] [phone] PCP - General Nurse Practitioner 06/23/25
== END 2025-06-29 10:34 ==
LOC: HO.HHCL 10:33
DX: Z00.00 Encounter for general adult medical examination without abnormal findings (principal)
CPT/HCPCS: 36415; 80061; 83036